=== PATIENT | male | born 1970 | race Caucasian/White ===

== ENCOUNTER 2018-03-09 08:00 | Day surgery (SDC) | payer BC ==
[2018-03-06 13:34] VITALS: BMI 27.9
[2018-03-09] MEDS ORDERED: PROPOFOL 20 ML ONE ×2 (08:05)
[2018-03-09] MEDS ORDERED: LIDOCAINE HCL/PF 2% SDV 5ML VIAL ONE (08:05)
[2018-03-09 09:50] VITALS: TEMP 97.6
[2018-03-09 10:19] VITALS: BP 104/71; PULSE 61
--- NOTE | 2018-03-10 15:58 | PATH ---
Surgical Pathology Report Patient Name: ML CAMEJO [facility]. Rec. #: [id number] /Age/Gender: 1970 (Age: 47) / M Account: [id number] Location: [facility]OS[facility] Taken: 03/09/2018 Received: 03/09/2018 Reported: 03/10/2018 Physicians: Herman Collins M.D. Specimen(s) Received A: SIGMOID POLYP PROXIMAL B: MID SIGMOID POLYP Clinical History Family history of colon cancer Postoperative diagnosis: Polyps Final Diagnosis A. PROXIMAL SIGMOID, POLYP, POLYPECTOMY: HYPERPLASTIC POLYP. B. MIDSIGMOID, POLYP, POLYPECTOMY: TUBULAR ADENOMA. Electronically Signed Carisa Iqbal M.D. Gross Description A. Received in formalin labeled "sigmoid polyp proximal," is a 0.4 cm. in greatest dimension jeronimo soft tissue fragment which is submitted in toto in one cassette. B. Received in formalin labeled "mid sigmoid polyp," is a 0.4 cm. in greatest dimension jeronimo soft tissue fragment which is submitted in toto in one cassette. located within [facility]/03/09/2018
== END 2018-03-09 10:15 | disposition home or self-care (01) ==
LOC: FASU-ENDO 08:00
PROVIDERS: ATTEND Internal Medicine Gastroenterology
PROC: 0DBL8ZX Excision of Transverse Colon, Via Natural or Artificial Opening Endoscopic, Diagnostic (ICD-10-PCS; principal; 2018-03-09 09:24)
DX: Z12.11 Encounter for screening for malignant neoplasm of colon (principal); Z80.0 Family history of malignant neoplasm of digestive organs; D12.5 Benign neoplasm of sigmoid colon; K63.5 Polyp of colon
CPT/HCPCS: 88305-TC

== ENCOUNTER 2022-09-20 07:46 | Day surgery (SDC) | payer BC ==
[2022-09-16 11:39] VITALS: BMI 28.5
[2022-09-20] MEDS ORDERED: PROPOFOL 120 ML ONE (07:53)
[2022-09-20] MEDS ORDERED: LIDOCAINE HCL/PF 2% SDV 5ML VIAL ONE (07:53)
[2022-09-20 09:34] VITALS: TEMP 97.7
[2022-09-20 09:39] VITALS: BP 105/62; PULSE 65; RESP 17
== END 2022-09-20 09:30 | disposition home or self-care (01) ==
LOC: FASU-ENDO 07:46
PROVIDERS: ATTEND Internal Medicine Gastroenterology
PROC: 0DJD8ZZ Inspection of Lower Intestinal Tract, Via Natural or Artificial Opening Endoscopic (ICD-10-PCS; principal; 2022-09-20 08:29)
DX: Z12.11 Encounter for screening for malignant neoplasm of colon (principal); Z86.010 Personal history of colon polyps; Z80.0 Family history of malignant neoplasm of digestive organs